=== PATIENT | female | born 1960 | race Caucasian/White ===

== ENCOUNTER → 2020-09-28 | Outpatient (CLI) | payer MEDICAID ==
[2020-09-28 16:43] LABS: Basophils # (A) 0.1 k/uL (0-0.2); Basophils % (A) 1 %; Eosinophils # (A) 0.4 k/uL (0-0.7); Eosinophils % (A) 7 %; HCT 40.1 % (34.0-46.0); HGB 13.1 gm/dL (11.4-16.0); Lymphocytes # (A) 3.1 k/uL (1.0-4.8); Lymphocytes % (A) 49 %; MCH 33.1 pg (25.0-35.0); MCHC 32.8 g/dL (31.0-37.0); MCV 101.1 fL (80.0-100.0); Mean Platelet Volume 7.7; Monocytes # (A) 0.4 k/uL (0-1.0); Monocytes % (A) 6 %; Neutrophils # (A) 2.1 k/uL (1.3-7.7); Neutrophils % (A) 34 %; Platelet Count 251 k/uL (150-450); RBC 3.97 m/uL (3.80-5.40); RDW 12.9 % (11.5-15.5); WBC 6.3 k/uL (3.8-10.6)
== END | disposition home or self-care (01) ==
LOC: LABPAT 15:45
PROVIDERS: ATTEND Obstetrics & Gynecology
DX: Z01.812 Encounter for preprocedural laboratory examination (principal)
CPT/HCPCS: 36415; 85025

== ENCOUNTER 2020-09-30 05:57 | Observation (INO) | payer MEDICAID ==
[2020-09-22 09:36] VITALS: BMI 20.3
[~2020-09-30 05:57] MED LIST: DEXAMETHASONE SOD PHOSPHATE 4 MG/ML 1 ML VIAL IV ONE; MIDAZOLAM 2 MG/2 ML VIAL IV PRN; ONDANSETRON 4 MG/2 ML VIAL IVP ONE; SCOPOLAMINE 1.5MG/72HR PATCH TRANSDERM ONE
[2020-09-30] MEDS ORDERED: PHENAZOPYRIDINE 200 MG TAB PO ONE (06:00)
[2020-09-30] MEDS ORDERED: LIDOCAINE 1% (10MG/ML) FOR IV START INTRADERMA ONE (06:40)
[2020-09-30] MEDS: LACTATED RINGERS 1,000 ML IV SCH (07:00)
[2020-09-30] MEDS ORDERED: ROCURONIUM 10 MG/ML (5 ML VIAL) IV ONE (07:28)
[2020-09-30] MEDS ORDERED: fentaNYL (PF) 50 MCG/ML 2 ML AMP ONE (07:28)
[2020-09-30] MEDS ORDERED: PROPOFOL 10 MG/ML 20 ML VIAL IV ONE (07:28)
[2020-09-30] MEDS ORDERED: HYDROmorphone (PF) 1 MG/ML ONE (07:28)
[2020-09-30] MEDS ORDERED: PHENYLEPHRINE-0.9% NACL SYG 1,000 MCG/10 ML SYRINGE ONE (07:28)
[2020-09-30] MEDS ORDERED: SUCCINYLCHOLINE CHLORIDE 100 MG/5 ML SYR IV ONE (07:28)
[2020-09-30] MEDS ORDERED: FUROSEMIDE 10 MG/ML 2 ML VIAL ONE (07:28)
[2020-09-30] MEDS ORDERED: GLYCOPYRROLATE 0.2 MG/ML 2 ML VIAL ONE (07:28)
[2020-09-30] MEDS ORDERED: METOPROLOL TARTRATE 5 MG/5 ML VIAL IVP ONE (07:28)
[2020-09-30] MEDS ORDERED: KETOROLAC 15 MG/ML 1 ML VIAL ONE (07:28)
[2020-09-30] MEDS ORDERED: NEOSTIGMINE 1 MG/ML 10 ML VIAL ONE (07:28)
[2020-09-30] MEDS ORDERED: ADENOSINE 3 MG/ML 2 ML VIAL IVP ONE (07:28)
[2020-09-30] MEDS ORDERED: LIDOCAINE 1% INJ 10MG/ML (20 ML MDV) ONE (07:28)
[2020-09-30] MEDS ORDERED: LACTATED RINGERS 1,000 ML IV ONE ×4 (07:55→11:13)
[2020-09-30] MEDS ORDERED: LIDOCAINE 1%-EPI 1:100,000 20 ML VIAL SQ ONE ×2 (08:30)
[2020-09-30] MEDS ORDERED: BACITRACIN ZINC 500 UNIT/GM OINT 28.4 GM TUBE TOPICAL ONE ×4 (10:02→10:51)
[2020-09-30] MEDS ORDERED: NALOXONE 0.4 MG/ML 1 ML VIAL IV PRN (11:13)
[2020-09-30] MEDS ORDERED: ONDANSETRON 4 MG/2 ML VIAL IVP PRN (11:13)
[2020-09-30] MEDS: HYDROmorphone 0.5 MG/0.5 ML SYRINGE IVP PRN ×6 (11:18→22:14)
[2020-09-30] MEDS ORDERED: tiZANidine 4 MG TAB PO PRN (11:21)
[2020-09-30] MEDS ORDERED: LIDOCAINE 5% PATCH TOPICAL PRN (11:21)
--- NOTE | 2020-09-30 12:11 | P.OP ---
Date of Procedure: 09/30/20 Preoperative Diagnosis: Uterovaginal Prolapse including uterine prolapse and rectocele, stress urinary incontinence with borderline urethra function Postoperative Diagnosis: Same plus cystocele Procedure(s) Performed: Robotic total laparoscopic hysterectomy with bilateral salpingo-oophorectomy, uterosacral ligament vaginal vault suspension, tension-free vaginal tape sling, posterior repair, anterior repair Anesthesia: ANDRIY Surgeon: Rob Gaston Estimated Blood Loss (ml): 100 Urine output (ml): 100 Pathology: other (Uterus tubes and ovaries.)
[2020-09-30] MEDS: GABAPENTIN 400 MG CAP PO SCH ×2 (16:02→22:14)
[2020-09-30] MEDS: DOCUSATE 100 MG CAP PO SCH (19:11)
[2020-09-30] MEDS: NON FORMULARY DRUG (Buprenorphine Hcl [Belbuca] 450 MCG Film) PO SCH (19:13)
[2020-09-30] MEDS: oxyCODONE-APAP 7.5-325MG 1 EACH TAB PO PRN (23:29)
[2020-10-01] MEDS: LACTATED RINGERS 1,000 ML IV SCH (04:27)
[2020-10-01] MEDS: HYDROmorphone 0.5 MG/0.5 ML SYRINGE IVP PRN (06:04)
[2020-10-01] MEDS: NON FORMULARY DRUG (Buprenorphine Hcl [Belbuca] 450 MCG Film) PO SCH (06:52)
[2020-10-01] MEDS: GABAPENTIN 400 MG CAP PO SCH ×2 (07:13→16:20)
[2020-10-01] MEDS: DOCUSATE 100 MG CAP PO SCH (07:13)
[2020-10-01] MEDS: oxyCODONE-APAP 7.5-325MG 1 EACH TAB PO PRN ×2 (08:59→16:20)
[2020-10-01] MEDS ORDERED: atenoloL 50 MG TAB PO SCH (09:00)
[2020-10-01] MEDS ORDERED: MAGNESIUM OXIDE 400 MG TAB PO SCH (09:00)
[2020-10-01] MEDS ORDERED: DILTIAZEM CD 180 MG CAP.ER.24H PO SCH (09:00)
[2020-10-01] MEDS ORDERED: NON FORMULARY DRUG (Glucosamine/Chondr Su A Sod [Osteo Bi-Flex Caplet] 1 EACH Tablet) PO SCH (09:00)
[2020-10-01 13:55] VITALS: BP 113/64; PULSE 60; RESP 14; TEMP 98.4
== END 2020-10-01 17:28 | disposition home or self-care (01) ==
LOC: OR 05:57 → 4SSUR 11:05 → 4FBP 11:05 → 4SSUR 12:46 → OR 23:36 → 4SSUR 23:36
PROVIDERS: ADMIT Obstetrics & Gynecology; ATTEND Obstetrics & Gynecology
DX: N81.4 Uterovaginal prolapse, unspecified (principal); N39.3 Stress incontinence (female) (male); R10.2 Pelvic and perineal pain; N81.6 Rectocele; H54.7 Unspecified visual loss; G89.29 Other chronic pain; M54.9 Dorsalgia, unspecified; Z79.899 Other long term (current) drug therapy; Z86.59 Personal history of other mental and behavioral disorders; Z85.3 Personal history of malignant neoplasm of breast; Z87.39 Personal history of other diseases of the musculoskeletal system and connective tissue
CPT/HCPCS: 58571; 57288; 57250; 57282; 86900; 86901; 86902; 86850; 86870; 86880; 88307; S2900; G0378 ×2; C1771; J2250; J1100; J0690; J2405; J1170 ×2